=== PATIENT | male | born 1990 | race African-American/Black ===

== ENCOUNTER → 2021-12-09 | Outpatient (CLI) | payer OTHER ==
--- NOTE | 2021-12-09 11:22 | RAD ---
EXAMINATION: CT HEAD/BRAIN WO. TECHNIQUE: Noncontrast axial images of the brain were obtained with coronal and sagittal reconstructi ons. One or more of the following radiation dose reduction techniques was used: automated exposure control , adjustment of mA and/or KV according to patient size, and/or utilization of iterative reconstructio n technique. HISTORY: 31 years Male Reason: closed head injury, pain FINDINGS: There is no intracranial hemorrhage, edema or mass effect. The brain parenchyma appears un remarkable. Size of the ventricles is appropriate. The visualized portions of the orbits and paranasal sinuses appear unremarkable. IMPRESSION: Unremarkable exam. Electronically signed by: Joe Braun MD (12/09/2021 11:20 AM) [id number]
== END ==
LOC: CT 08:18
PROVIDERS: ATTEND Preventive Medicine Occupational Medicine
DX: S09.90XA Unspecified injury of head, initial encounter (principal); G44.319 Acute post-traumatic headache, not intractable; M54.2 Cervicalgia; X58.XXXA Exposure to other specified factors, initial encounter; Y93.89 Activity, other specified; Y92.89 Other specified places as the place of occurrence of the external cause; Y99.8 Other external cause status
CPT/HCPCS: 70450